=== PATIENT | male | born 1995 | race Caucasian/White ===

== ENCOUNTER 2020-09-21 13:16 | Outpatient (REF) | payer BC, SELFPAY ==
[2020-09-21 16:27] LABS: Hematocrit 43.4 % (42-52); Hemoglobin 14.9 g/dl (14.0-18.0); Mean Corpuscular HGB Conc 34.3 g/dl (31.0-36.0); Mean Corpuscular Hemoglobin 29.6 pg (27.0-33.0); Mean Corpuscular Volume 86.3 fL (80-98); Mean Platelet Volume 10.7 fL (9.4-12.4); Platelet Count 210 X10*3/uL (160-400); Red Blood Count 5.03 X10*6/uL (4.60-5.80); Red Cell Distribution Width 12.1 % (11.0-16.0)
[2020-09-21 16:42] LABS: Glucose Urine UA NEG (NEG); Leukocyte Esterase Urine NEG (NEG); Nitrite Urine NEG (NEG); PH 6.5 (5.0-8.0); Specific Gravity - Urine 1.025 (1.005-1.025); Urine Blood NEG (NEG); Urine Ketones NEG (NEG); Urine Protein NEG (NEG-TRACE)
[2020-09-21 16:43] LABS: Appearance Urine CLEAR; Color Urine YELLOW
[2020-09-21 16:56] LABS: Alanine Aminotransferase 15 U/L (0-40); Albumin Level 4.9 g/dL (3.5-5.0); Alkaline Phosphatase 55 U/L (39-117); Anion Gap 17 (12-20); Aspartate Amino Transferase 20 U/L (5-37); Bilirubin Total 0.9 mg/dL (0.0-1.0); Blood Urea Nitrogen 9 mg/dL (9-16); Calcium 9.5 mg/dL (8.4-10.2); Carbon Dioxide 25 mmol/L (22-29); Chloride 102 mmol/L (96-108); Cholesterol 144 mg/dL; Estimated Glomerular Filt Rate > 60; Glucose Fasting 79 mg/dL (60-99); HDL Cholesterol 48 mg/dL; LDL Cholesterol Calculated 86 mg/dl; Potassium 3.6 mmol/L (3.3-5.1); Sodium 140 mmol/L (135-145); Total Protein 7.4 g/dL (6.5-8.0); Triglycerides 54 mg/dL
[2020-09-21 17:11] LABS: RBC Urine 0-2 /HPF (0); Squamous Epithelial Cell Urine TRACE /LPF; WBC Urine 0 /HPF (0-4)
[2020-09-21 17:14] LABS: Syphilis Screen Nonreactive (Nonreactive)
[2020-09-21 17:19] LABS: TSH reflex Free T4 1.05 uIU/mL (0.32-4.0)
[2020-09-23 00:43] LABS: HIV AB/AG Nonreactive (Nonreactive); HIV Num 1 0.08 S/CO (0.00-0.99)
== END 2020-09-21 13:17 | disposition home or self-care (01) ==
LOC: HO.HMGCLDS 13:16
PROVIDERS: PCP Internal Medicine; Visit Provider Internal Medicine
DX: Z00.00 Encounter for general adult medical examination without abnormal findings (principal); Z11.4 Encounter for screening for human immunodeficiency virus [HIV]
CPT/HCPCS: 36415; 80053; 80061; 81001; 84443; 85027; 86780; 87389

== ENCOUNTER 2020-10-13 | Outpatient (REF) | payer BC, SELFPAY ==
[2020-10-19 12:05] LABS: FIT Int Ctl YES; FIT1 NEGATIVE (NEGATIVE); FIT2 NEGATIVE (NEGATIVE)
== END 2020-10-13 00:01 | disposition home or self-care (01) ==
LOC: HO.LNP
PROVIDERS: Visit Provider Internal Medicine
DX: K59.00 Constipation, unspecified (principal)
CPT/HCPCS: 82274

== ENCOUNTER 2020-10-31 10:00 | Outpatient (RCR) | payer BC, SELFPAY ==
--- NOTE | 2020-09-26 17:17 | MHC.PT.EP ---
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 Pt HAS DECR POSTURAL AWARENESS, TIGHT PECT MM, WEAK Rt SH ER/ TRICEP/ ABD AND SCAP STAB/ W (+) WINGING, AND (+) Rt SH IMPINGEMENT SXS. HIS AROM IS WFL IN FREIDA SH GIRDLES- Pt HAS PAIN W PALP Rt AC Jt AND STERNOCLAVICULAR Jt. Pt IS A GOOD PT CANDIDATE TO ADDRESS THE ABOVE FINDINGS AND DEV A HEP. 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 Manual therapy to restore motion and function. Therapeutic exercise to improve strength and flexibility. Neuromuscular re-education for posture and balance. Therapeutic activities to return to functional activities of daily living. Electronically signed by: Tatiana Cabrera,PT Please sign and return to therapist. Thank you for your referral.
--- NOTE | 2020-10-31 13:05 | MHC.PT.DC ---
[facility] [place] [facility] [place] [facility] [place] [facility] [address] Silvana Baum [address] [phone] F: [phone] F: [phone] F: [phone] F: [phone] Physical Therapy Discharge Report Diagnosis: PAIN IN RIGHT SHOULDER Date of Surgery: Date of Evaluation: 09/26/20 Date of Discharge: 10/31/20 Treatments to Date: 9 Cancellations to Date: 0 No Shows to Date: 0 Discharge Status: Achieved Goals Improved Function Independent with HEP Discharge Summary: Pt HAS PROGRESSED WELL IN PT FOR Rt SHOULDER/ AC Jt DYSFUNCTION. HE HAS WFL AROM, MILD AND INTERMITTENT SH PAIN, AND IMPROVED FUNCTIONAL STRENGTH- INDEP W HEP ADDRESSING PROGRESSION W STRENGTHENING. FUNCTIONAL MOBILITY TOLERANCE IS MUCH BETTER- WE HAVE SIMUL AND EDUC Pt RE WORK SITE ERGONOMICS. HE IS MOTIVATED FOR D/C FROM PT AND TO CONT W HEP. Electronically signed by: Tatiana Cabrera,PT Please sign and return to therapist. Thank you for your referral.
== END 2020-10-31 13:06 | disposition other institution (70) ==
LOC: HO.PTCHIC 10:00
PROVIDERS: PCP Internal Medicine; Visit Provider Internal Medicine
DX: M25.511 Pain in right shoulder (principal); K59.00 Constipation, unspecified
CPT/HCPCS: 97110; 97140; 97161